=== PATIENT | female | born 1940 | race Caucasian/White ===

== ENCOUNTER → 2018-05-22 | Outpatient (CLI) | payer MEDICARE, BC ==
[~2018-05-22] MED LIST: ATEN25 PO; FISH1000 PO; LOSA25; Norco 5-325 Ta1 EACH PO; Voltaren100 GM TOP; XARELTO15 MG PO
== END | disposition home or self-care (01) ==
LOC: LAB EV 19:11 → LAB SHORT 19:11
DX: N39.0 Urinary tract infection, site not specified (principal)
CPT/HCPCS: 87086

== ENCOUNTER 2018-05-24 12:04 | Emergency (ER) | payer MEDICARE, BC ==
[~2018-05-24] VITALS: Ht 167.6 cm; Wt 68.5 kg
[~2018-05-24 12:04] MED LIST changes: -Norco 5-325 Ta1 EACH PO; -Voltaren100 GM TOP; -XARELTO15 MG PO
[2018-05-24] MEDS ORDERED: XARELTO15 MG PO (14:01)
[2018-05-24] MEDS ORDERED: Voltaren100 GM TOP (14:26)
[2018-05-24] MEDS ORDERED: Norco 5-325 Ta1 EACH PO (14:26)
== END 2018-05-24 14:30 | disposition home or self-care (01) ==
LOC: ER 12:04
DX: I82.411 Acute embolism and thrombosis of right femoral vein (principal); M54.2 Cervicalgia; Z88.8 Allergy status to other drugs, medicaments and biological substances; Z79.899 Other long term (current) drug therapy
CPT/HCPCS: 99283

== ENCOUNTER 2018-07-13 14:27 | Inpatient (IN) | payer MEDICARE, BC ==
[~2018-07-13] VITALS: Ht 167.6 cm; Wt 67.4 kg
[~2018-07-13 14:27] MED LIST changes: -LOSA25; +LOSA25 PO; +Norco 5-325 Ta1 EACH PO; +Voltaren100 GM TOP; +XARELTO15 MG PO
[2018-07-13 15:16] LABS: BASOPHILS ABSOLUTE AUTO 0.03 K/mm3 (0.00-0.23); BASOPHILS PERCENT AUTO 0 % (0-2); EOSINOPHILS ABSOLUTE AUTO 0.05 K/mm3 (0.00-0.68); EOSINOPHILS PERCENT AUTO 0 % (0-6); Hematocrit 35.4 % (33.0-51.0); Hemoglobin 11.2 g/dL (11.5-16.0); IMMATURE GRAN ABSOLUTE AUTO 0.29 K/mm3 (0.00-0.10); IMMATURE GRAN PERCENT AUTO 2 % (0-1); LYMPHOCYTES ABSOLUTE AUTO 0.85 K/mm3 (0.84-5.20); LYMPHOCYTES PERCENT AUTO 5 % (21-46); MONOCYTES ABSOLUTE AUTO 1.13 K/mm3 (0.16-1.47); MONOCYTES PERCENT AUTO 6 % (4-13); Mean Corpuscular HGB 28.6 pg (26.0-34.0); Mean Corpuscular HGB Conc 31.6 g/dL (31.5-36.5); Mean Corpuscular Volume 90 fL (80-100); Mean Platelet Volume 10.3 fL (9.1-12.4); NEUTROPHILS ABSOLUTE AUTO 16.17 K/mm3 (1.96-9.15); NEUTROPHILS PERCENT AUTO 87 % (41-73); Platelet Count 234 K/mm3 (150-400); RDW Coefficient Variation 14.3 % (11.7-14.2); RDW Standard Deviation 47.7 fL (35.1-46.3); Red Blood Cell Count 3.92 M/mm3 (3.80-5.20); White Blood Cell Count 18.52 K/mm3 (4.00-11.30)
[2018-07-13 15:20] LABS: Albumin, Blood 2.4 g/dL (3.4-5.0); Albumin/Globulin Ratio 0.5 (0.8-1.8); Bilirubin, Total 0.4 mg/dL (0.1-1.0); Calcium, Blood 9.9 mg/dL (8.5-10.1); Globulin, Blood 4.8 g/dL (2.2-4.0); Total Protein, Blood 7.2 g/dL (6.4-8.2)
[2018-07-13] MEDS ORDERED: XARELTO20 MG PO (15:27)
[2018-07-13] MEDS ORDERED: TRAM50 PO (15:28)
[2018-07-13] MEDS ORDERED: METF500 PO (15:46)
[2018-07-13] MEDS ORDERED: ACET500 PO (15:47)
[2018-07-13] MEDS ORDERED: LUTEIN-ZEAXANT1 EAC1 PO (15:49)
[2018-07-13] MEDS ORDERED: IRON PO (15:50)
[2018-07-13] MEDS ORDERED: THERA1 EACH PO (15:51)
[2018-07-13] MEDS ORDERED: ASCO500 PO (15:51)
[2018-07-13] MEDS ORDERED: VITAMIN D PO (15:52)
[2018-07-13] MEDS ORDERED: Vitamin B Comple1 EA PO (15:52)
[2018-07-13] MEDS ORDERED: JOINT HEALTH T1 EACH PO (15:53)
[2018-07-13] MEDS ORDERED: [UNRECOGNIZED DRUG - OTHER] PO (16:02)
--- NOTE | 2018-07-14 00:33 | NUR ---
PATIENT IS A NEW ADMIT FROM THE ED. THREE PERSON TRANSFER FROM [facility] TO BED. AXO X 3 AND TWO MAX ASSIST TO BSC. PATIENT REPORTS HER BACK IS IN TOO MUCH PAIN AND WOULD LIKE TO USE HER ATTENDS INSTEAD OF BSC OR BEDPAN AT THIS TIME. PATIENT ORIENTED TO ROOM AND CALL LIGHT SYSTEM. TELE LEADS IN PLACE AND PCU SORTER LUMBER STRAIGHTENER REPORTS NSR AT 95. PATIENT RESTING. CALL LIGHT IN REACH. WILL CONTINUE TO MONITOR.
--- NOTE | 2018-07-14 00:55 | NUR ---
PATIENT IS REFUSING PAIN MEDICATION AT THIS TIME AND REPORTS SHE WOULD LIKE TO GET SOME SLEEP. NS STARTED INFUSING AT 75mL/HR. CALL LIGHT IN REACH. BED IN LOWEST POSITION. WILL CONTINUE TO MONITOR. BED ALARM ACTIVATED.
--- NOTE | 2018-07-14 01:11 | NUR ---
PROVIDER CONSULT CALLED IN; GROUP IR TO: DR LUCIA Reece ANSWERING SERVICE.
--- NOTE | 2018-07-14 03:24 | NUR ---
RT SETTING UP CONTINUOUS PULSE OXIMETRY FOR HIGH RISK PAIN MEDICATION PER ORDER.
--- NOTE | 2018-07-14 03:49 | NUR ---
SHIFT SUMMARY PATIENT HAD NO ACUTE CHANGES OBSERVED THIS SHIFT. AXOX 3 AND BEDFAST PER PATIENT AT THIS TIME. PATIENT WOULD BE A TWO PERSON ASSIST TO BSC BUT REPORTS SHE HAS PAIN ON MOVEMENT. PATIENT REPORTS SHE WILL USE ATTENDS AND PASS ON BEDPAN AND BSC FOR PAIN MANAGEMENT. VSS/AFEBRILE. DENIES SOB AND N/V. PIV REMAINS INTACT. NS INFUSING AT 75mL/HR. IV ABXS INFUSED. CONSULT IR CALLED IN. WILL START AC/HS THIS AM. ON CONTINUOUS PULSE OXIMETRY FOR HIGH RISK MEDICATION. PATIENT REPORTED SHE WANTED TO SLEEP AFTER ADMIT AND WAS ABLE TO. CALL LIGHT IN REACH. BED ALARM ACTIVATED. WILL CONTINUE TO MONITOR UNTIL DAY SHIFT NURSE ASSUMES CARE.
[2018-07-14 05:10] LABS: Hemoglobin 11.1 g/dL (11.5-16.0); Mean Corpuscular HGB Conc 32.6 g/dL (31.5-36.5); Mean Corpuscular Volume 89 fL (80-100); Mean Platelet Volume 10.1 fL (9.1-12.4); Platelet Count 226 K/mm3 (150-400); RDW Coefficient Variation 14.1 % (11.7-14.2); Red Blood Cell Count 3.83 M/mm3 (3.80-5.20); White Blood Cell Count 13.65 K/mm3 (4.00-11.30)
[2018-07-14 05:35] LABS: Bun/Creatinine Ratio 32.4 (12.0-20.0); Calcium, Blood 9.6 mg/dL (8.5-10.1); Creatinine, Blood 0.99 mg/dL (0.40-1.00); Magnesium, Blood 2.1 mg/dL (1.6-2.4); Potassium, Blood 3.6 mmol/L (3.5-5.5)
--- NOTE | 2018-07-14 05:43 | NUR ---
PATIENT HAVING INCREASING CONFUSION THIS A.M. NOT REMEMBERING AN ANSWER TO A QUESTION JUST EXPLAINED TO HER X 4. DENIES PAIN, SOB, AND N/V. CALL LIGHT IN REACH.
--- NOTE | 2018-07-14 14:53 | NUR ---
SUMMARY/DISCHARGE PT DISCHARGED/TRANSFERRED TO [facility] FOR [facility]ERY, PT HAS BEEN PLEASANT AND COOPERATIVE T/O THE DAY, PT FORGETFUL AND WOULD REPEAT QUESTIONS, PT HAD BEEN MED PER [facility] FOR PAIN, PT REFUSED A BEDPAN AND REFUSED A CATHETER, PREFERRING INSTEAD TO USE THE ATTENDS TO VOID IN, EDUCATED PT REGARDING PROTECTING HER SKIN AND PREVENTION OF A UTI, PT'S DAUGTER HAS BEEN IN SEVERAL TIMES AND WAS ABLE TO TAKE MOST OF THE BELONGINGS, TRANSPORT HERE TO GET THE PT AROUND 1420, REPORT CALLED TO REED RN, PT MED FOR PAIN JUST PRIOR TO LEAVING
== END 2018-07-14 14:15 | disposition short-term general hospital (02) | DRG 638 ==
LOC: ER 14:27 → MEDS 22:06 → ER 23:30 → MEDS 23:30
PROVIDERS: Emergency Medicine; Nurse Practitioner Acute Care; ADMIT Internal Medicine
DX: E11.69 Type 2 diabetes mellitus with other specified complication (principal); M46.27 Osteomyelitis of vertebra, lumbosacral region; I10 Essential (primary) hypertension; Z86.718 Personal history of other venous thrombosis and embolism; Z79.01 Long term (current) use of anticoagulants; R32 Unspecified urinary incontinence; D50.9 Iron deficiency anemia, unspecified; M46.57 Other infective spondylopathies, lumbosacral region; Z66 Do not resuscitate
CPT/HCPCS: 36415; 72156; 72157; 72158; 80048; 80053; 82947; 83605; 83735; 85025; 85027; 85651; 86140; 87040; 94762; 96365-59; 96367-59; 96375-59; 96376-59; 99285-25; A9577; J0696; J1170; J2543; J3370; J7030; J7050

== ENCOUNTER → 2019-01-03 | Outpatient (CLI) | payer MEDICARE, BC ==
[~2019-01-03] MED LIST changes: +ACET500 PO; +ASCO500 PO; +IRON PO; +JOINT HEALTH T1 EACH PO; +LUTEIN-ZEAXANT1 EAC1 PO; +METF500 PO; +THERA1 EACH PO; +TRAM50 PO; +VITAMIN D PO; +Vitamin B Comple1 EA PO; +XARELTO20 MG PO; +[UNRECOGNIZED DRUG - OTHER] PO
[2019-01-03 11:24] LABS: Source, Urine Clean Catch
[2019-01-03 16:03] LABS: Bilirubin, Urine Neg (Neg); Blood, Urine 1+ (Neg); Glucose Qualitative, Urine Neg (Neg); Ketones, Urine Neg (Neg); Leukocyte Esterase, Urine 1+ (Neg); Nitrite, Urine Neg (Neg); Protein, Urine Neg (Neg); Specific Gravity, Urine 1.015 (1.003-1.022); Urobilinogen, Urine NORM (Normal)
[2019-01-03 16:16] LABS: Appearance, Urine Clear (Clear); Color, Urine Yellow (P-Yellow)
[2019-01-03 16:17] LABS: Bacteria Few /hpf; Red Blood Cells, Urine 0-2 /hpf (0-2); Squamous Epithelial Cells Few /hpf (Few)
[2019-01-03 17:15] LABS: Creatinine, Urine Random 52.1 mg/dL (27.00-270.00); Protein, Urine Random 7.3 mg/dL (0.0-11.9)
== END | disposition home or self-care (01) ==
LOC: LAB 11:22 → LAB SHORT 11:22
PROVIDERS: Internal Medicine
DX: N17.9 Acute kidney failure, unspecified (principal)
CPT/HCPCS: 81001; 82570; 84156

== ENCOUNTER 2019-03-29 07:29 | Day surgery (SDC) | payer MEDICARE, BC ==
[~2019-03-29] VITALS: Ht 167.6 cm; Wt 64.6 kg
[~2019-03-29 07:29] MED LIST changes: +Ferrousul325 MG PO; +MELA3 PO; +METFORMIN HCL500 MG PO
--- NOTE | 2019-03-29 09:43 | NUR ---
03/29/19 0943 Rubi Clark 12ML ELEVIEW USED TO ELEVATE SPLENIC FLEXURE POLYP
== END 2019-03-29 10:23 | disposition home or self-care (01) ==
LOC: ORSCSDS 07:29
PROVIDERS: Internal Medicine Gastroenterology
PROC: 3E0H8GC Introduction of Other Therapeutic Substance into Lower GI, Via Natural or Artificial Opening Endoscopic (ICD-10-PCS; principal; 2019-03-29 09:00)
PROC: 0DBL8ZX Excision of Transverse Colon, Via Natural or Artificial Opening Endoscopic, Diagnostic (ICD-10-PCS; principal; 2019-03-29 09:00)
PROC: 0DBN8ZX Excision of Sigmoid Colon, Via Natural or Artificial Opening Endoscopic, Diagnostic (ICD-10-PCS; principal; 2019-03-29 09:00)
DX: Z12.11 Encounter for screening for malignant neoplasm of colon (principal); Z86.010 Personal history of colon polyps; D12.3 Benign neoplasm of transverse colon; D12.5 Benign neoplasm of sigmoid colon; K57.30 Diverticulosis of large intestine without perforation or abscess without bleeding; K64.8 Other hemorrhoids; I12.9 Hypertensive chronic kidney disease with stage 1 through stage 4 chronic kidney disease, or unspecified chronic kidney disease; E11.22 Type 2 diabetes mellitus with diabetic chronic kidney disease; N18.3 Chronic kidney disease, stage 3 (moderate); Z79.899 Other long term (current) drug therapy; Z79.84 Long term (current) use of oral hypoglycemic drugs
CPT/HCPCS: 82947; 88305; J2704; J7120

== ENCOUNTER → 2019-06-24 | Outpatient (CLI) | payer MEDICARE, BC ==
[~2019-06-24] MED LIST changes: +GUAI200 PO; +LOSARTAN POTASS25 M2 PO; +METFORMIN HCL500 M2 PO; +PRAVASTATIN SOD20 MG PO; +Thera Tears15 ML; +VALA500 PO; +ZINC15 PO; +Zantac150 MG PO
[2019-06-24 16:54] LABS: BASOPHILS ABSOLUTE AUTO 0.04 K/mm3 (0.00-0.23); BASOPHILS PERCENT AUTO 1 % (0-2); EOSINOPHILS ABSOLUTE AUTO 0.25 K/mm3 (0.00-0.68); EOSINOPHILS PERCENT AUTO 4 % (0-6); Hematocrit 43.4 % (33.0-51.0); Hemoglobin 14.7 g/dL (11.5-16.0); IMMATURE GRAN ABSOLUTE AUTO 0.03 K/mm3 (0.00-0.10); IMMATURE GRAN PERCENT AUTO 1 % (0-1); LYMPHOCYTES ABSOLUTE AUTO 1.59 K/mm3 (0.84-5.20); LYMPHOCYTES PERCENT AUTO 25 % (21-46); MONOCYTES ABSOLUTE AUTO 0.56 K/mm3 (0.16-1.47); MONOCYTES PERCENT AUTO 9 % (4-13); Mean Corpuscular HGB 30.5 pg (26.0-34.0); Mean Corpuscular HGB Conc 33.9 g/dL (31.5-36.5); Mean Corpuscular Volume 90 fL (80-100); NEUTROPHILS PERCENT AUTO 62 % (41-73); RDW Coefficient Variation 14.5 % (11.7-14.2); RDW Standard Deviation 47.7 fL (35.1-46.3); Red Blood Cell Count 4.82 M/mm3 (3.80-5.20); White Blood Cell Count 6.47 K/mm3 (4.00-11.30)
[2019-06-24 17:36] LABS: Platelet Count 136 K/mm3 (150-400)
== END | disposition home or self-care (01) ==
LOC: LAB SHORT 16:44 → LAB EV 16:44
PROVIDERS: Physician Assistant Surgical
DX: K92.1 Melena (principal)
CPT/HCPCS: 85025

== ENCOUNTER 2019-06-25 16:41 | Inpatient (IN) | payer MEDICARE, BC ==
[~2019-06-25] VITALS: Ht 165.1 cm; Wt 68.7 kg
[~2019-06-25 16:41] MED LIST changes: -GUAI200 PO; -LOSARTAN POTASS25 M2 PO; -METFORMIN HCL500 M2 PO; -PRAVASTATIN SOD20 MG PO; -Thera Tears15 ML; -VALA500 PO; -ZINC15 PO; -Zantac150 MG PO
[2019-06-25] MEDS ORDERED: VALA500 PO (17:34)
[2019-06-25] MEDS ORDERED: GUAI200 PO (17:34)
[2019-06-25 17:35] LABS: BASOPHILS ABSOLUTE AUTO 0.05 K/mm3 (0.00-0.23); BASOPHILS PERCENT AUTO 1 % (0-2); EOSINOPHILS ABSOLUTE AUTO 0.26 K/mm3 (0.00-0.68); EOSINOPHILS PERCENT AUTO 4 % (0-6); Hematocrit 42.5 % (33.0-51.0); Hemoglobin 13.7 g/dL (11.5-16.0); IMMATURE GRAN ABSOLUTE AUTO 0.04 K/mm3 (0.00-0.10); IMMATURE GRAN PERCENT AUTO 1 % (0-1); LYMPHOCYTES ABSOLUTE AUTO 1.55 K/mm3 (0.84-5.20); LYMPHOCYTES PERCENT AUTO 25 % (21-46); MONOCYTES ABSOLUTE AUTO 0.66 K/mm3 (0.16-1.47); MONOCYTES PERCENT AUTO 11 % (4-13); Mean Corpuscular HGB 29.8 pg (26.0-34.0); Mean Corpuscular HGB Conc 32.2 g/dL (31.5-36.5); Mean Platelet Volume 11.1 fL (9.1-12.4); NEUTROPHILS ABSOLUTE AUTO 3.59 K/mm3 (1.96-9.15); NEUTROPHILS PERCENT AUTO 58 % (41-73); Platelet Count 141 K/mm3 (150-400); RDW Coefficient Variation 14.5 % (11.7-14.2); Red Blood Cell Count 4.59 M/mm3 (3.80-5.20); White Blood Cell Count 6.15 K/mm3 (4.00-11.30)
[2019-06-25] MEDS ORDERED: Thera Tears15 ML (17:35)
[2019-06-25] MEDS ORDERED: ZINC15 PO (17:35)
[2019-06-25] MEDS ORDERED: Zantac150 MG PO (17:35)
[2019-06-25 17:37] LABS: Mean Corpuscular Volume 93 fL (80-100)
[2019-06-25 18:02] LABS: International Normalized Ratio 1.27; Prothrombin Time Results 13.4 Sec (9.7-11.5)
[2019-06-25 18:05] LABS: Albumin, Blood 3.3 g/dL (3.4-5.0); Bilirubin, Total 0.3 mg/dL (0.1-1.0); Bun/Creatinine Ratio 27.9 (12.0-20.0); Calcium, Blood 9.8 mg/dL (8.5-10.1); Creatinine, Blood 1.4 mg/dL (0.40-1.00); Globulin, Blood 3.2 g/dL (2.2-4.0); Total Protein, Blood 6.5 g/dL (6.4-8.2)
[2019-06-25] MEDS ORDERED: PRAVASTATIN SOD20 MG PO (20:02)
[2019-06-25] MEDS ORDERED: LOSARTAN POTASS25 M2 PO (20:02)
[2019-06-25] MEDS ORDERED: METFORMIN HCL500 M2 PO (20:03)
[2019-06-25 21:35] LABS: Hematocrit 41.3 % (33.0-51.0); Hemoglobin 13.5 g/dL (11.5-16.0)
[2019-06-26 01:14] LABS: Hematocrit 42.2 % (33.0-51.0); Hemoglobin 13.5 g/dL (11.5-16.0)
[2019-06-26 05:37] LABS: Hematocrit 35.5 % (33.0-51.0); Hemoglobin 11.4 g/dL (11.5-16.0); Mean Corpuscular HGB 29.8 pg (26.0-34.0); Mean Corpuscular HGB Conc 32.1 g/dL (31.5-36.5); Mean Corpuscular Volume 93 fL (80-100); Mean Platelet Volume 11.5 fL (9.1-12.4); Platelet Count 117 K/mm3 (150-400); RDW Coefficient Variation 14.6 % (11.7-14.2); RDW Standard Deviation 49.3 fL (35.1-46.3); Red Blood Cell Count 3.82 M/mm3 (3.80-5.20)
[2019-06-26 06:08] LABS: Bun/Creatinine Ratio 23.3 (12.0-20.0); Calcium, Blood 9.2 mg/dL (8.5-10.1); Creatinine, Blood 1.2 mg/dL (0.40-1.00); Potassium, Blood 4.2 mmol/L (3.5-5.5)
[2019-06-26 10:18] LABS: Hematocrit 35.2 % (33.0-51.0); Hemoglobin 11.3 g/dL (11.5-16.0)
[2019-06-27 08:42] LABS: BASOPHILS ABSOLUTE AUTO 0.03 K/mm3 (0.00-0.23); BASOPHILS PERCENT AUTO 1 % (0-2); EOSINOPHILS ABSOLUTE AUTO 0.24 K/mm3 (0.00-0.68); EOSINOPHILS PERCENT AUTO 4 % (0-6); Hematocrit 34.5 % (33.0-51.0); IMMATURE GRAN ABSOLUTE AUTO 0.02 K/mm3 (0.00-0.10); IMMATURE GRAN PERCENT AUTO 0 % (0-1); LYMPHOCYTES PERCENT AUTO 23 % (21-46); MONOCYTES PERCENT AUTO 7 % (4-13); Mean Corpuscular HGB Conc 31.9 g/dL (31.5-36.5); Mean Corpuscular Volume 94 fL (80-100); Mean Platelet Volume 11.1 fL (9.1-12.4); NEUTROPHILS ABSOLUTE AUTO 3.68 K/mm3 (1.96-9.15); NEUTROPHILS PERCENT AUTO 65 % (41-73); Platelet Count 121 K/mm3 (150-400); RDW Coefficient Variation 14.5 % (11.7-14.2); RDW Standard Deviation 50.7 fL (35.1-46.3); Red Blood Cell Count 3.67 M/mm3 (3.80-5.20); White Blood Cell Count 5.67 K/mm3 (4.00-11.30)
[2019-07-03 15:08] LABS: ACT. PRT C RESIST W/FV DEFIC. 2.8 ratio (.); APTT 24.4 sec (.); FACTOR VIII ACTIVITY 154 % (.); HEXAGONAL PHOSPHOLIPID NEUTRAL 0 sec (.); HOMOCYSTEINE 8.4 umol/L (.); PRT C ACTIVITY (CHROMOGENIC) 110 % (.)
== END 2019-06-27 15:38 | disposition home or self-care (01) | DRG 392 ==
LOC: ER 16:41 → MEDS 16:42 → ENPENDDIS 06-27 11:04 → MEDS 06-27 15:38
PROVIDERS: Emergency Medicine; Family Medicine; Nurse Practitioner Acute Care; ADMIT Internal Medicine
DX: K57.90 Diverticulosis of intestine, part unspecified, without perforation or abscess without bleeding (principal); Z79.84 Long term (current) use of oral hypoglycemic drugs; N18.3 Chronic kidney disease, stage 3 (moderate); I12.9 Hypertensive chronic kidney disease with stage 1 through stage 4 chronic kidney disease, or unspecified chronic kidney disease; H90.8 Mixed conductive and sensorineural hearing loss, unspecified; E11.22 Type 2 diabetes mellitus with diabetic chronic kidney disease; K58.9 Irritable bowel syndrome, unspecified; T45.515A Adverse effect of anticoagulants, initial encounter; Y92.9 Unspecified place or not applicable
CPT/HCPCS: 36415; 74176; 80048; 80053; 81240; 83090; 85014; 85018; 85025; 85027; 85240; 85300; 85303; 85306; 85307; 85610; 85613; 85730; 85732; 86146; 86147; 86850; 86900; 86901; 96361; 96374; 99284-25; G0378; J2405; J7030; J7120

== ENCOUNTER 2020-01-24 07:33 | Day surgery (SDC) | payer MEDICARE, BC ==
[~2020-01-24] VITALS: Ht 167.6 cm; Wt 69.1 kg
[~2020-01-24 07:33] MED LIST changes: +Aspir 8181 MG PO; +GUAI200 PO; +LOSARTAN POTASS25 M2 PO; +LUTEIN20 MG PO; +METFORMIN HCL500 M2 PO; +MULTIPLE VITAM1 EACH PO; +PRAV20 PO; +PRAVASTATIN SOD20 MG PO; +Thera Tears15 ML; +VALA500 PO; +ZINC15 PO; +Zantac150 MG PO
--- NOTE | 2020-01-24 09:17 | NUR ---
01/24/20 0917 Rubi Clark 1.5ML NORMAL SALINE USED TO ELEVATE SPLENIC FLEXURE POLYP
== END 2020-01-24 09:45 | disposition home or self-care (01) ==
LOC: ORSCSDS 07:33
PROVIDERS: Internal Medicine Gastroenterology
PROC: 0DBK8ZX Excision of Ascending Colon, Via Natural or Artificial Opening Endoscopic, Diagnostic (ICD-10-PCS; principal; 2020-01-24 08:45)
PROC: 0DBL8ZX Excision of Transverse Colon, Via Natural or Artificial Opening Endoscopic, Diagnostic (ICD-10-PCS; principal; 2020-01-24 08:45)
DX: Z86.010 Personal history of colon polyps (principal); Z80.0 Family history of malignant neoplasm of digestive organs; D12.2 Benign neoplasm of ascending colon; D12.3 Benign neoplasm of transverse colon; K57.30 Diverticulosis of large intestine without perforation or abscess without bleeding; K64.8 Other hemorrhoids; I10 Essential (primary) hypertension; F17.210 Nicotine dependence, cigarettes, uncomplicated; E11.9 Type 2 diabetes mellitus without complications; N18.30 Chronic kidney disease, stage 3 unspecified; Z86.718 Personal history of other venous thrombosis and embolism; Z79.899 Other long term (current) drug therapy
CPT/HCPCS: 82947; 88305; J0330; J0461; J2405; J2704; J7120

== ENCOUNTER 2020-06-30 18:26 | Emergency (ER) | payer MEDICARE, BC | END 2020-06-30 19:23 | disposition left against medical advice (07) | LOC: ER 18:26 | DX: Z53.21 Procedure and treatment not carried out due to patient leaving prior to being seen by health care provider (principal) ==

== ENCOUNTER → 2023-01-31 | Outpatient (CLI) | payer MEDICARE, BC | LOC: LAB SHORT 12:15 → LAB 12:15 | DX: L08.9 Local infection of the skin and subcutaneous tissue, unspecified (principal) | CPT/HCPCS: 87070; 87205 ==

== ENCOUNTER 2023-11-10 08:03 | Day surgery (SDC) | payer MEDICARE, BC ==
[~2023-11-10] VITALS: Ht 167.6 cm; Wt 61.1 kg
[2023-11-10] MEDS ORDERED: propofoL 50 ML IV ONE (08:58)
[2023-11-10] MEDS ORDERED: Lactated Ringer's 1,000 ML IV ONE ×3 (08:59→10:08)
[2023-11-10] MEDS ORDERED: IBANDRONATE SO150 MG (09:12)
[2023-11-10] MEDS ORDERED: ATOR40TA (09:12)
[2023-11-10] MEDS ORDERED: THERA-D2000 UNIT (09:12)
[2023-11-10] MEDS ORDERED: VALA500 (09:13)
[2023-11-10] MEDS ORDERED: Bystolic10 MG (09:13)
--- NOTE | 2023-11-10 10:23 | NUR ---
11/10/23 1023 Todd Cook INJECTED 2.5ML NS FOR POLYPECTOMY.
[2023-11-10 10:50] VITALS: BP 139/80
== END 2023-11-10 11:00 | disposition home or self-care (01) ==
LOC: ORSCSDS 08:03
PROVIDERS: Internal Medicine Gastroenterology
PROC: 0DBN8ZX Excision of Sigmoid Colon, Via Natural or Artificial Opening Endoscopic, Diagnostic (ICD-10-PCS; principal; 2023-11-10 09:30)
PROC: 0DBK8ZX Excision of Ascending Colon, Via Natural or Artificial Opening Endoscopic, Diagnostic (ICD-10-PCS; principal; 2023-11-10 09:30)
PROC: 0DBL8ZX Excision of Transverse Colon, Via Natural or Artificial Opening Endoscopic, Diagnostic (ICD-10-PCS; principal; 2023-11-10 09:30)
DX: Z12.11 Encounter for screening for malignant neoplasm of colon (principal); D12.2 Benign neoplasm of ascending colon; D12.3 Benign neoplasm of transverse colon; D12.5 Benign neoplasm of sigmoid colon; K57.30 Diverticulosis of large intestine without perforation or abscess without bleeding; K64.8 Other hemorrhoids; Z86.010 Personal history of colon polyps; Z80.0 Family history of malignant neoplasm of digestive organs; N18.31 Chronic kidney disease, stage 3a; Z79.82 Long term (current) use of aspirin; Z79.899 Other long term (current) drug therapy
CPT/HCPCS: 88305; J2704; J7120

== ENCOUNTER 2024-10-03 06:17 | Day surgery (SDC) | payer MEDICARE, BC ==
[~2024-10-03] VITALS: Ht 165.1 cm; Wt 61.6 kg
[~2024-10-03 06:17] MED LIST changes: +ATOR40TA; +Bystolic10 MG; +DONEPEZIL HCL10 MG; +IBANDRONATE SO150 MG; +THERA-D2000 UNIT; +VALA500
[2024-10-03] MEDS ORDERED: Lidocaine HCl 4% 5 ML SDA ONE (06:27)
[2024-10-03] MEDS ORDERED: Dexamethasone Sod Phos 10 MG/ML 1ML VIAL ONE (06:56)
[2024-10-03] MEDS ORDERED: Ondansetron HCl 2 MG / ML 2ML Vial ONE (06:56)
[2024-10-03] MEDS ORDERED: Lidocaine 2%-Epineph 1:200000 20 ML SDV ONE (07:11)
[2024-10-03] MEDS ORDERED: FentaNYL Citrate 50 MCG/ML 2 ML Injection ONE (07:25)
[2024-10-03] MEDS ORDERED: Metoclopramide HCl 5MG / ML 2ML Vial ONE (07:46)
--- NOTE | 2024-10-03 10:01 | NUR ---
10/03/24 1001 Margot Daley REPORT RECEIVED FROM BHARATH AND RN. DRESSING CDI. PT ABLE TO FOLLOW COMMANDS AND ANSWER SIMPLE QUESTIONS. VSS. PT DENIES PAIN OR NAUSEA AT THIS TIME.
[2024-10-03 10:43] VITALS: BP 126/78
--- NOTE | 2024-10-03 10:43 | NUR ---
10/03/24 1043 Margot Daley PT IN RECLINER, TRANSFERRED WITH RNX2 ASSIST. WARM BLANKETS APPLIED AND PILLOW PLACED BEHIND PT BACK. BILATERAL HEARING AIDS RETURNED TO PATIENT AND PATIENT PLACED BOTH IN EARS. PT DENIES PAIN. STATES "I CAN FEEL SOMETHING HAS BEEN DONE". PT DENIES NAUSEA. TOLERATING ORAL FLUIDS WELL. NO SWELLING NOTED AROUND NECK DRESSING. NO DRAINAGE NOTED AT THIS TIME. DAUGHTER CALLED TO COME BACK TO [facility]CHAR[facility] IN[facility].
== END 2024-10-03 11:34 | disposition home or self-care (01) ==
LOC: ORSCSDS 06:17
PROVIDERS: Otolaryngology
PROC: 0GBR0ZZ Excision of Parathyroid Gland, Open Approach (ICD-10-PCS; principal; 2024-10-03 07:30)
DX: E21.0 Primary hyperparathyroidism (principal); D35.1 Benign neoplasm of parathyroid gland; I12.9 Hypertensive chronic kidney disease with stage 1 through stage 4 chronic kidney disease, or unspecified chronic kidney disease; N18.30 Chronic kidney disease, stage 3 unspecified; E78.5 Hyperlipidemia, unspecified; I25.10 Atherosclerotic heart disease of native coronary artery without angina pectoris; R73.03 Prediabetes; Z79.899 Other long term (current) drug therapy; Z79.82 Long term (current) use of aspirin; Z85.43 Personal history of malignant neoplasm of ovary
CPT/HCPCS: 82947; 83970; 88305; 88331; A9270; J1100; J2003; J2405; J2704; J2765; J3010; J7120